=== PATIENT | male | born 1990 | race Caucasian/White ===

== ENCOUNTER 2016-12-27 21:26 | Inpatient (IN) | payer OTHER ==
[~2016-12-27] VITALS: Ht 185.4 cm; Wt 73.7 kg
[2016-12-27 21:41] VITALS: BP 135/77; PULSE 79; RESP 16; TEMP 98.5; O2SAT 100
--- NOTE | 2016-12-27 22:41 | PD ---
HPI . Right arm swelling Chief Complaint: Musculoskeletal Complaint Time Seen by Provider: 22:41 Travel History International Travel<30 days: No Contact w/Intl Traveler<30days: No Traveled to known affect area: No History of Present Illness HPI 26-year-old male patient presents emergency department for evaluation of right arm swelling and slight erythema. Patient first noticed the swelling 3 days ago. Patient states his right arm feels slightly weaker than the left arm. Patient denies any trauma or injury occurring to the right arm. Patient denies any history of blood clots. Patient denies chest pain or shortness breath. Patient denies any major medical history. Patient states he does not take any daily medication. Patient's only allergy is penicillin. [facility] Past Medical History Medical History: Denies Significant Hx Diminished Hearing: No Tetanus Vaccination: < 5 Years Influenza Vaccination: No Past Surgical History Surgical History: No Previous Surgery Social History Alcohol Use: Yes (daily) Tobacco Use: Yes (1/2 ppd) Substance Use: No Allergies-Medications (Allergen,Severity, Reaction): Coded Allergies: Penicillins (Verified Allergy, Unknown, 12/27/16) HAS BEEN TAKING AMOXICILLIN WITH NO PROBLEM Review of Systems Except as stated in HPI: all other systems reviewed are Neg Musculoskeletal: Positive: Edema (right arm) Physical Exam Narrative GENERAL: Well-nourished, well-developed 26-year-old male patient in no acute distress. Nontoxic appearing. SKIN: Focused skin assessment warm/dry. HEAD: Normocephalic. Atraumatic EYES: No scleral icterus. No injection or drainage. NECK: Supple, trachea midline. No JVD or lymphadenopathy. CARDIOVASCULAR: Regular rate and rhythm without murmurs, gallops, or rubs. Radial pulse palpated bilaterally. RESPIRATORY: Breath sounds equal bilaterally. No accessory muscle use. GASTROINTESTINAL: Abdomen soft, non-tender, nondistended. MUSCULOSKELETAL: Right arm moderately swollen from the axilla down to the hand. Mild erythema noted on the posterior aspect of the right upper extremity. Full range of motion with flexing and extending at the elbow joint. Pain in axilla decreases range of motion when raising right arm up overhead. BACK: Nontender without obvious deformity. No CVA tenderness. Data Data Last Documented VS Vital Signs Date Time Temp Pulse Resp B/P (MAP) Pulse Ox O2 Delivery O2 Flow Rate FiO2 12/27/16 21:41 98.5 79 16 135/77 (96) 100 Orders Orders Complete Blood Count With Diff (12/27/16 22:37) Basic Metabolic Panel (Bmp) (12/27/16 22:37) Act Partial Throm Time (Ptt) (12/27/16 22:37) Prothrombin Time / Inr (Pt) (12/27/16 22:37) Iv Access Insert/Monitor (12/27/16 22:37) Us Arm Venous Doppler (12/27/16 ) MDM Medical Decision Making Medical Screen Exam Complete: Yes Emergency Medical Condition: Yes Interpretation(s) Afebrile, no tachycardia Differential Diagnosis Differential diagnoses include but not limited to DVT and right upper extremity , cellulitis, lymphedema, right arm contusion, vascular insufficiency Narrative Course 26-year-old male patient presents to the emergency department for evaluation of right arm swelling. Patient denies any trauma or injuries regular right arm. The swelling is moderate and extends from the axilla down to the hand. Patient denies any recent travels, hormone therapy, history of malignancy, chest pain, shortness breath or history of blood clots. IV and blood for lab work obtained. CBC, BMP, PT INR ordered and pending. Ultrasound of right upper extremity ordered and pending. Dr. Alba assumes care for this patient. Please see his documentation for further details and disposition. Gem Liu Dec 27, 2016 22:41
[2016-12-27 22:58] LABS: BASOPHIL # 0.3 TH/MM3 (0-0.2); BASOPHIL % 3.3 % (0.0-2.0); EOSINOPHIL # 0.1 TH/MM3 (0-0.4); EOSINOPHIL % 1.5 % (0.0-4.0); HEMO FLAGS DIFF FINAL; LYMPHOCYTE # 2.1 TH/MM3 (1.0-4.8); MEAN CELL VOLUME 93.3 FL (80.0-100.0); MEAN CORPUSCULAR HEMOGLOBIN 32.1 PG (27.0-34.0); MEAN CORPUSCULAR HGB CONC 34.4 % (32.0-36.0); MONO % 9.4 % (0.0-8.0); NEUT % 63.8 % (16.0-70.0); PLATELET COUNT 228 TH/MM3 (150-450); RED CELL DISTRIBUTION WIDTH 12.4 % (11.6-17.2); WHITE BLOOD COUNT 9.4 TH/MM3 (4.0-11.0)
[2016-12-27 23:07] LABS: POTASSIUM 4.2 MEQ/L (3.5-5.1)
[2016-12-27 23:09] LABS: BICARBONATE 29.8 MEQ/L (21.0-32.0)
[2016-12-27 23:12] LABS: APTT (PATIENT) 25.7 SEC (24.3-30.1); INTERNATIONAL NORMALIZED RATIO 0.9 RATIO; PROTHROMBIN TIME - PATIENT 10.4 SEC (9.8-11.6)
--- NOTE | 2016-12-27 23:49 | RADRPT ---
EXAM DATE/TIME: 12/27/2016 23:19 [facility] COMPARISON: No previous studies available for comparison. INDICATIONS : Right arm pain and swelling. MEDICAL HISTORY : Right arm pain and swelling. SURGICAL HISTORY : None. ENCOUNTER: Initial ACUITY: 3 days PAIN SCORE: 7/10 LOCATION: Right arm. FINDINGS: Occlusive thrombus seen of the right subclavian and axillary veins. Other venous tributaries of the r ight upper extremity, including the right internal jugular vein, are patent. CONCLUSION: Right upper extremity DVT involving the subclavian and axillary veins. Dennis Mac MD on December 27, 2016 at 23:46 Board Certified Radiologist. This report was verified electronically.
[2016-12-28] VITALS (7 sets, daily range): BP systolic 116–142; BP diastolic 63–83; PULSE 40–61; RESP 16–18; TEMP 97.5–98; O2SAT 98–99
[2016-12-28] MEDS ORDERED: HEPARIN-D5W 25,000 U/250 ML 250 ML IV PRN ×4 (01:00→02:00)
[2016-12-28] MEDS ORDERED: HEPARIN SODIUM - IV 10,000 UNITS/10 ML VIAL IV PUSH ONE (01:00)
[2016-12-28] MEDS ORDERED: SODIUM CHLORIDE 0.9% FLUSH 10 ML FLUSH IV FLUSH PRN (01:15)
[2016-12-28] MEDS ORDERED: NALOXONE HCL 0.4 MG/ML AMP IV PUSH PRN (01:15)
--- NOTE | 2016-12-28 01:23 | PD ---
Data Data Last Documented VS Vital Signs Date Time Temp Pulse Resp B/P (MAP) Pulse Ox O2 Delivery O2 Flow Rate FiO2 12/27/16 21:41 98.5 79 16 135/77 (96) 100 Orders Orders Complete Blood Count With Diff (12/27/16 22:37) Basic Metabolic Panel (Bmp) (12/27/16 22:37) Act Partial Throm Time (Ptt) (12/27/16 22:37) Prothrombin Time / Inr (Pt) (12/27/16 22:37) Iv Access Insert/Monitor (12/27/16 22:37) Us Arm Venous Doppler (12/27/16 ) Heparin Inj (Heparin Inj) (12/28/16 01:00) Heparin-D5w 25,000 U/250 Ml (Heparin-D5w (12/28/16 01:00) Cbc No Diff, Includes Plts (12/31/16 06:00) Act Partial Throm Time (Ptt) (12/28/16 07:48) Occult Blood (Hemoccult) Stool (12/28/16 00:48) Heparin-D5w 25,000 U/250 Ml (Heparin-D5w (12/28/16 01:00) Admit To Inpatient (12/28/16 ) Vital Signs (Adult) Q4H (12/28/16 01:04) Activity Bed Rest (12/28/16 01:04) Safety Clothing And Equipment Developer / Telemetry .CONTINUOUS (12/28/16 01:04) Diet Heart Healthy (12/28/16 Breakfast) Sodium Chloride 0.9% Flush (Ns Flush) (12/28/16 01:15) Sodium Chloride 0.9% Flush (Ns Flush) (12/28/16 09:00) Case Management Consult (12/28/16 01:04) Naloxone Inj (Narcan Inj) (12/28/16 01:15) Inpatient Certification (12/28/16 ) Admit Order (Ed Use Only) (12/28/16 ) Labs Laboratory Tests Test 12/27/16 22:40 White Blood Count 9.4 TH/MM3 Red Blood Count 4.40 MIL/MM3 Hemoglobin 14.1 GM/DL Hematocrit 41.0 % Mean Corpuscular Volume 93.3 FL Mean Corpuscular Hemoglobin 32.1 PG Mean Corpuscular Hemoglobin Concent 34.4 % Red Cell Distribution Width 12.4 % Platelet Count 228 TH/MM3 Mean Platelet Volume 7.6 FL Neutrophils (%) (Auto) 63.8 % Lymphocytes (%) (Auto) 22.0 % Monocytes (%) (Auto) 9.4 % Eosinophils (%) (Auto) 1.5 % Basophils (%) (Auto) 3.3 % Neutrophils # (Auto) 6.0 TH/MM3 Lymphocytes # (Auto) 2.1 TH/MM3 Monocytes # (Auto) 0.9 TH/MM3 Eosinophils # (Auto) 0.1 TH/MM3 Basophils # (Auto) 0.3 TH/MM3 CBC Comment DIFF FINAL Differential Comment Prothrombin Time 10.4 SEC Prothromb Time International Ratio 0.9 RATIO Activated Partial Thromboplast Time 25.7 SEC Blood Urea Nitrogen 11 MG/DL Creatinine 1.10 MG/DL Random Glucose 91 MG/DL Calcium Level 8.8 MG/DL Sodium Level 137 MEQ/L Potassium Level 4.2 MEQ/L Chloride Level 103 MEQ/L Carbon Dioxide Level 29.8 MEQ/L Anion Gap 4 MEQ/L Estimat Glomerular Filtration Rate 80 ML/MIN MDM Supervised Visit with FARIDEH: Yes Narrative Course Patient care assumed from Gem Mckeon at 2300. This is a 26-year-old male presents emergency for right upper extremity swelling. Go on for the past 3 days. Patient ultrasound confirms the subclavian and axillary DVT. On extensive review of systems and history I cannot find any provoking factor except for the fact the patient smokes. Patient was discussed with Dr. Salvador for ongoing management and she suggested the patient can go home and follow-up in complete workup as an outpatient. After discussing with Dr. Salvador I do not have any supportive employment case manager [facility] and therefore I cannot safely discharge this patient on medication. He will therefore be heparinized in place in observation status. Patient discussed with Dr. Ledezma. Diagnosis Primary Impression: DVT of axillary vein, acute right Admitting Information Admitting Physician Requests: Observation Condition: Stable Clay Alba MD Dec 28, 2016 01:23
[2016-12-28] MEDS: ACETAMINOPHEN/HYDROcodone 325 MG/5 MG TAB PO PRN ×2 (03:40→09:33)
[2016-12-28 08:59] LABS: APTT (PATIENT) 65.4 SEC (24.3-30.1)
[2016-12-28] MEDS ORDERED: SODIUM CHLORIDE 0.9% FLUSH 10 ML FLUSH IV FLUSH SCH (09:00)
[2016-12-28] MEDS ORDERED: KETOROLAC TROMETHAMINE 60 MG/2 ML (IM) VIAL IM PRN (11:30)
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
[2016-12-28] MEDS ORDERED: NAPR500 PO (15:38)
[2016-12-28] MEDS ORDERED: XARE15TA PO (15:38)
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
[2016-12-28] MEDS ORDERED: RIVAROXABAN 15 MG TAB PO SCH (21:00)
== END 2016-12-28 18:07 | disposition home or self-care (01) | DRG 301 ==
LOC: PHEFT 21:26 → OBSVTOIN 12-28 01:06 → PHEDA 12-28 01:06 → UNDOADMOB 12-28 01:07 → PHEDA 12-28 02:53 → PH5A 12-28 02:53 → UNDODISOB 12-28 18:07
PROVIDERS: ADMIT Hospitalist; ATTEND Hospitalist
DX: I82.A11 Acute embolism and thrombosis of right axillary vein (principal); I82.B11 Acute embolism and thrombosis of right subclavian vein; F17.210 Nicotine dependence, cigarettes, uncomplicated; Z88.0 Allergy status to penicillin
CPT/HCPCS: 73120; 80048; 85025; 85610; 85730; 93971; 96365; 96366; 96375; G0378; J1644